=== PATIENT | male | born 1965 | race Caucasian/White ===

== ENCOUNTER 2019-06-17 18:46 | Emergency (ER) | payer BC, OTHER ==
[~2019-06-17] VITALS: Ht 170.2 cm; Wt 133.8 kg
[~2019-06-17 18:46] MED LIST: COUMADIN5 MG PO; IRON18 MG PO
--- OUTSIDE RECORDS SUMMARY | 2019-06-17 18:49 | XMS REPORT | Encounter Summary ---
Author Organization Unknown Address [address] [place] [address] Phone [phone] Care Team Providers Care Sales Support Coordinator Name Role Phone Dr. Felipe Lozano 3 [phone] Felipe Lozano MD 3 [phone] Carlos Lucas MD 82 [phone] Saul Blanchard MD 82 [phone] Ramos Santos MD 82 [phone] Ivanna Calzada MD 105 [phone] Berto Rivero 107 [phone] Ronaldo Corea MD 107 [phone] Devon Walker MD 130 [phone] D Ba Wasserman Jr, MD 201 [phone] Reason for Visit sinus symptoms; chronic conditions Instructions 1. Acute sinusitis Zithromax Z-Trip 250 mg tablet Bromfed DM 2 mg-30 mg-10 mg/5 mL oral syrup 2. Prediabetes 3. Dyslipidemia atorvastatin 20 mg tablet 4. Deep venous thrombosis of lower extremity 5. Body mass index 40+ - severely obese Discussion Note: None recorded. Patient educational handouts: No information available. Plan of Care Patient Instructions RTC 6 mo CPX Reminders Provider Appointments REGISTRY RN/EST CPX on or around 08/05/2019 Felipe Lozano MD Lab None recorded. Referral None recorded. Procedures None recorded. Surgeries None recorded. Imaging None recorded. Medications Name Start Date atorvastatin 20 mg tablet Take 1 tablet every day by oral route. Bromfed DM 2 mg-30 mg-10 mg/5 mL oral syrup Take 10 mL every 6 hours by oral route as needed. prn cough and congestion ferrous sulfate 325 mg (65 mg iron) tablet Jantoven 5 mg tablet 1 tablet daily and 1 1/2 alternate days. 02/03/2019 losartan 100 mg-hydrochlorothiazide 12.5 mg tablet Take 1 tablet every day by oral route for 30 days. metoprolol tartrate 25 mg tablet Take 1 tablet every day by oral route. pantoprazole 40 mg tablet,delayed release Take 1 tablet every day by oral route. Zithromax Z-Trip 250 mg tablet TAKE 2 TABLETS (500 MG) BY ORAL ROUTE ONCE DAILY FOR 1 DAY THEN 1 TABLET (250 MG) BY ORAL ROUTE ONCE DAILY FOR 4 DAYS Medications Administered None recorded. Vitals Height Weight BMI Blood Pressure 5 ft 7 in 305.4 lbs 47.8 kg/m2 130/80 mm[Hg] Results Lab Results None recorded. Allergies Code Code System Name Reaction Severity Status Onset 572247 RxNorm Demerol Bradycardia Severe Active Penicillins Bradycardia Fatal Active Problems Name Status Onset Date Source Bilateral Hearing Loss Active 05/07/2017 Deep Venous Thrombosis of Lower Extremity Active 05/07/2017 Gastroesophageal Reflux Disease without Esophagitis Active 05/07/2017 Low Back Pain Active 05/07/2017 Palpitations Active 05/07/2017 Body Mass Index 40+ - Severely Obese Active 05/07/2017 Anemia Active 07/12/2017 Prediabetes Active 07/12/2017 Dyslipidemia Active 01/10/2018 Hypertensive Disorder Active 04/01/2018 Rosacea Active 04/25/2018 Procedures Date Name Performed by 01/01/2018 Hemorrhoidectomy Information not available 01/01/2018 Colonoscopy Information not available 04/19/2017 Gastrointestinal Surgery Information not available Other Information not available Ankle Arthroscopy/surgery Information not available Knee Surgery Information not available Elbow Arthroscopy/surgery Information not available Vaccine List Vaccine Type influenza, injectable, quadrivalent, preservative free 01/06/2018 01/25/2019 influenza, unspecified formulation 03/19/2017 Tdap 08/31/20170.5 mL Social History Tobacco Smoking Status Never Smoker Past Encounters 02/03/2019 Acute Sinusitis; Prediabetes; Dyslipidemia; Deep Venous Thrombosis of Lower Extremity; Body Mass Index 40+ - Severely Obese Felipe Lozano MD: [id number], [address] [address], Ph. 01/25/2019 Influenza Vaccination Given Felipe Lozano MD: [address], [facility] [address] [address], Ph. History of Present Illness Note:Sick: occ diarrhea, got flu shot recently.<div>Timin wks</div><div> Fever: y</div><div>Chills: n</div><div>Aches: n</div><div>Sore Throat: intermittent</div><div>Cough: y</div><div>Earache: n</div><div>Headache: y</div> <div>Sinus pressure: y</div><div>Runny stuffy nose: n</div><div>Itchy watery eyes: n</div><div>Sneezing: n</div><div>Drainage: y</div><div>Treatment: OTC meds not helping</div><div>
</div><div>low back pain - better</div><div> baclofen 20 mg tablet 1 tablet as needed in the evening</div><div>ibuprofen 800 mg tablet 1 tablet 3 times a day as needed
</div><div>
</div><div>deep venous thrombosis of lower extremity - stable
</div><div>Per Card
</div>< div>
</div><div>thrombocytosis - better</div><div>
</div>Your labs are normal except...
<div>1. Lipids are higher than I would like considering you are on Pravastatin. Take your meds. Consider changing it in the future. I recommend low fat diet and walking. I will monitor.
</div><div>2. You are borderline diabetic. I recommend low carb / sugar diet and walking. I will monitor.
</div><div>3. You are a little anemic. I will monitor.
</div><div >
</div> Review of Systems:ROS as noted in the HPI Review of Systems Comprehensive General Adult ROS Reported By: Patient Constitutional: Constitutional: no fever Eyes: Eyes: no vision change, no irritation ENMT: Ears: no difficulty hearing, no ear pain. Nose: no nose problems, no sinus problems. Mouth/Throat: no sore throat, no oral abnormalities Cardiovascular: Cardiovascular: no chest pain, no palpitations Respiratory: Respiratory: no cough, no wheezing, no shortness of breath Gastrointestinal: Gastrointestinal: no abdominal pain, no nausea, no vomiting, no constipation, normal appetite, no diarrhea, no GERD Genitourinary: Genitourinary: no difficulty urinating, no hematuria, no increased frequency Musculoskeletal: Musculoskeletal: no muscle aches Integumentary: Skin: no rashes Neurologic: Neurologic: no headaches Endocrine: Endocrine: no fatigue Hematologic/Lymphatic: Hematologic/Lymphatic no swollen glands Allergic/Immunologic: Allergy/Immunologic: no runny nose, no sinus pressure, no itching, no frequent sneezing Physical Exam General Adult Exam (male) Reported By: Patient Constitutional: General Appearance: healthy-appearing, well-nourished, well-developed. Level of Distress: NAD. Ambulation: ambulating normally Psychiatric: Insight: good judgement. Mental Status: normal mood, normal affect Head: Head: normocephalic, atraumatic Eyes: Lids and Conjunctivae: non-injected, no discharge, no pallor. Pupils: PERRLA. EOM: EOMI ENMT: Ears: no lesions on external ear, EACs clear, TMs clear. Hearing: no hearing loss. Nose: no lesions on external nose, nares patent, nasal passages clear, no sinus tenderness, no nasal discharge. Oropharynx: moist mucous membranes, no erythema, no exudates, tonsils not enlarged Neck: Neck: supple, trachea midline, no masses, FROM. Lymph Nodes: no cervical LAD, no supraclavicular LAD Lungs: Respiratory effort: no dyspnea. Auscultation: breath sounds normal, good air movement, CTA except as noted, no wheezing, no rales/crackles, no rhonchi Cardiovascular: Heart Auscultation: RRR, normal S1, normal S2, no murmurs, no rubs, no gallops Neurologic: Gait and Station: normal gait, normal station
--- OUTSIDE RECORDS SUMMARY | 2019-06-17 18:49 | XMS REPORT ---
Author Author [facility] Address Unknown Phone Unavailable Care Team Providers Care Big Data Platform Architect Name Role Phone Unavailable Unavailable Problems This patient has no known problems. Allergies, Adverse Reactions, Alerts This patient has no known allergies or adverse reactions. Medications This patient has no known medications.
--- OUTSIDE RECORDS SUMMARY | 2019-06-17 18:49 | XMS REPORT | Encounter Summary ---
Author Organization Unknown Address [address] [place] [address] Phone [phone] Care Team Providers Care Materials Handling Coordinator Name Role Phone Dr. Felipe Lozano 3 [phone] Felipe Lozano MD 3 [phone] Carlos Lucas MD 82 [phone] Saul Blanchard MD 82 [phone] Ramos Santos MD 82 [phone] Ivanna Calzada MD 105 [phone] Berto Rivero 107 [phone] Ronaldo Corea MD 107 [phone] Devon Walker MD 130 [phone] D Ba Wasserman Jr, MD 201 [phone] Reason for Visit flu vaccine Instructions 1. Influenza vaccination given Fluzone Quad [id number] (PF) 60 mcg (15 mcg x 4)/0.5 mL IM syringe Discussion Note: None recorded. Patient educational handouts: No information available. Plan of Care Reminders Provider Appointments INSTRUCTOR ROBOTICS/EST CPX on or around 08/05/2019 Felipe Lozano MD Lab None recorded. Referral None recorded. Procedures None recorded. Surgeries None recorded. Imaging None recorded. Medications Name Start Date baclofen 20 mg tablet Take 1 tablet as needed by oral route in the evening. prn spasm ferrous sulfate 325 mg (65 mg iron) tablet ibuprofen 800 mg tablet Take 1 tablet 3 times a day by oral route as needed. prn moderate pain Jantoven 5 mg tablet alternate 1 tab every other day and 1/2 tab every other day. losartan 100 mg-hydrochlorothiazide 12.5 mg tablet Take 1 tablet every day by oral route for 30 days. metoprolol tartrate 25 mg tablet Take 1 tablet every day by oral route. pantoprazole 40 mg tablet,delayed release Take 1 tablet every day by oral route. pravastatin 40 mg tablet 1 tablet everyday tramadol 50 mg tablet 1 tablet everyday Medications Administered None recorded. Vitals None recorded. Results Lab Results None recorded. Allergies Code Code System Name Reaction Severity Status Onset 086682 RxNorm Demerol Bradycardia Severe Active Penicillins Bradycardia [...] Type influenza, injectable, quadrivalent, preservative free 01/06/2018 influenza, unspecified formulation 03/19/2017 Tdap 08/31/20170.5 mL Social History Tobacco Smoking Status Never Smoker Past Encounters 01/25/2019 Influenza Vaccination Given Felipe Lozano MD: [address], [address], [place] [address], Ph. History of Present Illness None recorded. Review of Systems None recorded. Physical Exam None recorded.
--- OUTSIDE RECORDS SUMMARY | 2019-06-17 18:49 | XMS REPORT | Encounter Summary ---
Author Organization Unknown Address [address] [place] [address] Phone [phone] Care Team Providers Care Barrel Raiser Name Role Phone Dr. Felipe Lozano 3 [phone] Felipe Lozano MD 3 [phone] Carlos Lucas MD 82 [phone] Saul Blanchard MD 82 [phone] Ramos Santos MD 82 [phone] Ivanna Calzada MD 105 [phone] Berto Rivero 107 [phone] Ronaldo Corea MD 107 [phone] Devon Walker MD 130 [phone] D Ba Wasserman MD 201 [phone] Reason for Visit Annual physical - male with PSA Instructions 1. Adult health examination CBC w/ auto diff CMP, serum or plasma TSH, serum or plasma lipid panel, serum HbA1c (hemoglobin A1c), blood PSA, serum or plasma 2. Low back pain baclofen 20 mg tablet ibuprofen 800 mg tablet 3. Deep venous thrombosis of lower extremity 4. Thrombocytosis 5. Body mass index 40+ - severely obese body mass index: care instructions learning about healthy weight Discussion Note: None recorded. Plan of Care Patient Instructions RTC prn I can manage BP / Lipid meds but Pt should havbe only 1 doc manage at a time. Reminders Provider Appointments CATH LAB/EST CPX on or around 08/05/2019 Felipe Lozano MD Lab CBC W/ Auto Diff 08/04/2018 [facility] CMP, Serum or Plasma 08/04/2018 [facility] TSH, Serum or Plasma 08/04/2018 [facility] Lipid Panel, Serum 08/04/2018 [facility] HbA1C (Hemoglobin a1C), Blood 08/04/2018 [facility] PSA, Serum or Plasma 08/04/2018 [facility] Referral None recorded. Procedures None recorded. Surgeries [...] tablet everyday Medications Administered None recorded. Vitals Height Weight BMI Blood Pressure 5 ft 7 in 305 lbs 47.8 kg/m2 124/82 mm[Hg] Lab Results None recorded. Allergies Code Code System Name Reaction Severity Status Onset 039389 RxNorm Demerol Bradycardia Severe Active Penicillins Bradycardia [...] formulation 03/19/2017 Tdap 08/31/20170.5 mL Social History Smoking Status Never Smoker Past Encounters 08/04/2018 Adult Health Examination; Low Back Pain; Deep Venous Thrombosis of Lower Extremity; Thrombocytosis; Body Mass Index 40+ - Severely Obese Felipe Lozano MD: [address], [facility] [address], [place] [address], Ph. History of Present Illness Note:[place] desired.<div>
</div><div>hypertensive disorder - Stable. Taking meds. No problems with side effects or cost.
<div>losartan 100 mg- hydrochlorothiazide 25 mg tablet</div><div>CArd has been managing but Pt may want me to do it.</div><div>
</div><div>Back Pain - Lt CVA pain. Some trouble lifting Lt leg s/ pain. [place] something in back pop.</div><div>No fall / trauma. Pt had a bad dream and jumped out of bed.</div><div>x 1wk</div><div>No Tx.</div><div>
</div><div>DVT - on blood thinners</div></div> Review of Systems:ROS as noted in the HPI Review of Systems Comprehensive General Adult ROS Reported By: Patient Constitutional: Constitutional: no fever, no night sweats, no significant weight gain, no significant weight loss, no exercise intolerance Eyes: Eyes: no dry eyes, no vision change, no irritation ENMT: Ears: no difficulty hearing, no ear pain. Nose: no frequent nosebleeds, no nose problems, no sinus problems. Mouth/Throat: no sore throat, no bleeding gums, no snoring, no dry mouth, no mouth ulcers, no oral abnormalities, no teeth problems Cardiovascular: Cardiovascular: no chest pain, no arm pain on exertion, no shortness of breath when walking, no shortness of breath when lying down, no palpitations, no known heart murmur, no lightheadedness Respiratory: Respiratory: no cough, no wheezing, no shortness of breath, no coughing up blood, no sleep apnea Gastrointestinal: Gastrointestinal: no abdominal pain, no nausea, no vomiting, no constipation, normal appetite, no diarrhea, not vomiting blood, no dyspepsia, no GERD Genitourinary: Genitourinary: no incontinence, no difficulty urinating, no hematuria, no increased frequency Musculoskeletal: Musculoskeletal: no muscle aches, no muscle weakness, no arthralgias/joint pain, no back pain, no swelling in the extremities Integumentary: Skin: no abnormal mole, no jaundice, no rashes, no laceration Neurologic: Neurologic: no loss of consciousness, no weakness, no numbness, no seizures, no dizziness, no migraines, no headaches, no tremor Psychiatric: Psych: no depression, no sleep disturbances, feeling safe in a relationship, no alcohol abuse, no anxiety, no hallucinations, no suicidal thoughts Endocrine: Endocrine: no fatigue Hematologic/Lymphatic: Hematologic/Lymphatic no swollen glands, no bruising, no excessive bleeding Allergic/Immunologic: Allergy/Immunologic: no runny nose, no sinus pressure, no itching, no hives, no frequent sneezing Physical Exam General Adult Exam (male) Reported By: Patient Constitutional: General Appearance: healthy-appearing, well-nourished, well-developed. Level of Distress: NAD. Ambulation: ambulating normally Psychiatric: Insight: good judgement. Mental Status: active and alert, normal mood, normal affect. Orientation: to time, to place, to person. Memory: recent memory normal, remote memory normal Head: Head: normocephalic, atraumatic Eyes: Lids and Conjunctivae: non-injected, no discharge, no pallor. Pupils: PERRLA. EOM: EOMI. Lens: clear. Sclerae: non-icteric. Vision: peripheral vision grossly intact, acuity grossly intact ENMT: Ears: no lesions on external ear, EACs clear, TMs clear, TM mobility normal. Hearing: no hearing loss; hearing aids. Nose: no lesions on external nose, nares patent, no septal deviation, nasal passages clear, no sinus tenderness, no nasal discharge. Lips, Teeth, and Gums: no mouth or lip ulcers, no bleeding gums, normal dentition. Oropharynx: moist mucous membranes, no erythema, no exudates, tonsils not enlarged Neck: Neck: supple, trachea midline, no masses, FROM. Lymph Nodes: no cervical LAD, no supraclavicular LAD, no axillary LAD, no inguinal LAD. Thyroid: no enlargement, non-tender, no nodules Lungs: Respiratory effort: no dyspnea. Auscultation: breath sounds normal, good air movement, CTA except as noted, no wheezing, no rales/crackles, no rhonchi Cardiovascular: Heart Auscultation: RRR, normal S1, normal S2, no murmurs, no rubs, no gallops. Neck vessels: no carotid bruits. Pulses including femoral / pedal: normal throughout Abdomen: Bowel Sounds: normal. Inspection and Palpation: soft, non-distended, no tenderness, no guarding, no rebound tenderness, no masses, no CVA tenderness. Liver: non-tender, no hepatomegaly. Spleen: non-tender, no splenomegaly Male : Male Exam: patient deferred exam Rectal: Rectal Exam: patient deferred exam Musculoskeletal:: Motor Strength and Tone: normal, normal tone. Joints, Bones, and Muscles: normal movement of all extremities, no contractures, no bony abnormalities, no malalignment, no tenderness. Extremities: no cyanosis, no edema, no varicosities Neurologic: Gait and Station: normal gait, normal station. Cranial Nerves: grossly intact. Sensation: grossly intact. Reflexes: DTRs 2+ bilaterally throughout. Coordination and Cerebellum: no tremor Skin: Inspection and palpation: no lesions, no jaundice Back: Thoracolumbar Appearance: normal curvature; below Notes: No LBP with sit / lie.<div>Lt lumbar spinal TTP.</div><div>Defer / Rectal since had colonoscopy recently</div>
--- OUTSIDE RECORDS SUMMARY | 2019-06-17 18:49 | XMS REPORT | Encounter Summary ---
Author Organization Unknown Address [address] [place] [address] Phone [phone] Care Team Providers Care Wedding Consultant Name Role Phone Dr. Felipe Lozano 3 [phone] Felipe Lozano MD 3 [phone] Carlos Lucas MD 82 [phone] Saul Blanchard MD 82 [phone] Ramos Santos MD 82 [phone] Ivanna Calzada MD 105 [phone] Berto Rivero 107 [phone] Ronaldo Corea MD 107 [phone] Devon Walker MD 130 [phone] D Ba Wasserman Jr, MD 201 [phone] Reason for Visit sore throat; cough / congestion Instructions 1. Upper respiratory infection fluticasone propionate 50 mcg/actuation nasal spray,suspension 2. Sore throat symptom rapid strep group A, throat rapid flu (A+B) 3. Deep venous thrombosis of lower extremity 4. Morbid obesity learning about healthy weight Discussion Note: None recorded. Plan of Care Reminders Provider Appointments None recorded. Lab Rapid Strep Group a, Throat 04/30/2019 [facility] ([facility]) Rapid Flu (A+B) 04/30/2019 [facility] ([facility]) Referral None recorded. Procedures None recorded. Surgeries None recorded. Imaging None recorded. Medications Name Start Date atorvastatin 20 mg tablet Take 1 tablet every day by oral route. ferrous sulfate 325 mg (65 mg iron) tablet fluticasone propionate 50 mcg/actuation nasal spray,suspension [place] 1 spray twice a day by intranasal route. Jantoven 5 mg tablet 1 tablet daily and 1 1/2 alternate days. 02/03/2019 losartan 100 mg-hydrochlorothiazide 12.5 mg tablet Take 1 tablet every day by oral route for 30 days. metoprolol tartrate 25 mg tablet Take 1 tablet every day by oral route. pantoprazole 40 mg tablet,delayed release Take 1 tablet every day by oral route. Medications Administered None recorded. Vitals Height Weight BMI Blood Pressure 5 ft 7 in 293 lbs 45.9 kg/m2 126/82 mm[Hg] Results Lab Results Date Name Specimen Result Interpretation Description Value Range Status Address 04/30/2019 Rapid Flu (A+B) Type Flu a negative [facility] ([facility]): [address] [address], [place] Type Flu B negative [facility] ([facility]): [address] Rapid Strep Group a, Throat Strep negative [facility] ([facility]): [address] Allergies Code Code System Name Reaction Severity Status Onset 303815 RxNorm Demerol Bradycardia Severe Active Penicillins Bradycardia [...] Tobacco Smoking Status Never Smoker Past Encounters 04/30/2019 Upper Respiratory Infection; Sore Throat Symptom; Deep Venous Thrombosis of Lower Extremity; Morbid Obesity Wilberto Bowman [facility]: [address] [address], [place] [address], Ph. History of Present Illness Note:<div>53 yo male c/o sore throat.</div><div>
</div><div>Sick:
</div>< div>Timing: x 1 day
</div><div>Fever: n
</div><div>Chills: y
</div>< div>Aches: n
</div><div>Sore Throat: y
</div><div>Cough: mild
</div>< div>Earache: n
</div><div>Headache: n
</div><div>Sinus pressure: n
< /div><div>Runny stuffy nose: y
</div><div>Itchy watery eyes: n
</div><div> Sneezing: n
</div><div>Drainage: n
</div><div>Treatment: OTC meds not helping</div><div>Ill contacts: y</div><div>Flu vaccine UTD: y</div> Review of Systems Notes: No CP, SOB, no NVD , no urinary sx of dysuria, frequency Physical Exam Upper Respiratory Infection Exam Comprehensive Reported By: Patient Constitutional: General Appearance in no acute distress Skin: Inspection and palpation: no rash, good turgor Head: Sinuses no tenderness Eyes: Pupils EOM intact, PERRLA Ears: Right External auditory canal normal appearance, no obstruction, no erythema, no discharge. Left External auditory canal normal appearance, no obstruction, no erythema, no discharge. Right Tympanic membrane pearly robin, landmarks clear. Left Tympanic membrane: pearly robin, landmarks clear Nose: Nasal Skin: no lesion, no lacerations. Nasal Mucosa normal, pink and moist Oral Cavity/Mouth: Lips, teeth, gums normal lips, normal gums. Oral Mucosa: normal, moist, no lesions. Palate: soft palate petechiae. Tongue: normal tongue, no lesion, no edema. Tonsils: normal tonsils, no lesions. Posterior pharynx: erythema Lymph Nodes: Cervical no palpable lymph node enlargement, no submandibular adenopathy, no posterior cervical adenopathy, no anterior cervical adenopathy, no supraclavicular adenopathy Neck: Neck symmetrical, trachea midline Lungs: Respiratory effort unlabored. Auscultation breath sounds normal, no wheezing, no rales / crackles, no rhonchi Cardiovascular System: Auscultation regular rate and rhythm, no murmur, no rubs, no gallops. Observation/Palpation of peripheral vascular system no edema
--- NOTE | 2019-06-17 19:51 | Diagnostic Imaging Report ---
Exam: Right knee 3 views History: Pain Comparison: None. Findings: No acute, displaced fracture or dislocation. Mild tricompartmental joint space narrowing and marginal osteophytosis. No definite joint effusion. Soft tissues are unremarkable. Impression: No acute osseous abnormalities. Mild tricompartmental degenerative arthrosis. Signed by: Dr. Ramos John M.D. on 06/17/2019 7:48 PM
--- NOTE | 2019-06-17 19:52 | Diagnostic Imaging Report ---
Exam: Left shoulder 2 views History: Shoulder pain Comparison: None. Findings: No acute, displaced fracture or dislocation. Humeral head projects appropriately adjacent to the glenoid area moderate acromioclavicular joint space narrowing and undersurface osteophytosis. Soft tissues unremarkable. Impression: No acute osseous abnormality. Moderate acromioclavicular degenerative arthrosis. Signed by: Dr. Ramos John M.D. on 06/17/2019 7:50 PM
[2019-06-17] MEDS ORDERED: ROBAXIN-750750 MG PO (19:54)
== END 2019-06-17 20:05 | disposition home or self-care (01) ==
LOC: FSED 18:46
DX: S80.01XA Contusion of right knee, initial encounter (principal); S16.1XXA Strain of muscle, fascia and tendon at neck level, initial encounter; S46.011A Strain of muscle(s) and tendon(s) of the rotator cuff of right shoulder, initial encounter; V43.52XA Car driver injured in collision with other type car in traffic accident, initial encounter; Y92.488 Other paved roadways as the place of occurrence of the external cause; Z86.718 Personal history of other venous thrombosis and embolism
CPT/HCPCS: 99283

== ENCOUNTER 2019-06-18 16:43 | Emergency (ER) | payer OTHER ==
[~2019-06-18] VITALS: Ht 170.2 cm; Wt 133.8 kg
[~2019-06-18 16:43] MED LIST changes: +ROBAXIN-750750 MG PO
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
== END 2019-06-18 18:01 | disposition home or self-care (01) ==
LOC: ER 16:43
DX: S23.3XXA Sprain of ligaments of thoracic spine, initial encounter (principal); S20.219A Contusion of unspecified front wall of thorax, initial encounter; M25.512 Pain in left shoulder; M25.561 Pain in right knee; V43.52XA Car driver injured in collision with other type car in traffic accident, initial encounter; Y92.488 Other paved roadways as the place of occurrence of the external cause; Z86.718 Personal history of other venous thrombosis and embolism
CPT/HCPCS: 71046; 93005; 99283

== ENCOUNTER → 2020-01-01 | Emergency (ER) | payer OTHER ==
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
== END | disposition left against medical advice (07) ==
LOC: FSED 19:39
DX: S69.92XA Unspecified injury of left wrist, hand and finger(s), initial encounter (principal)

== ENCOUNTER 2020-04-15 14:00 | Outpatient (RCR) | payer OTHER | END 2020-04-18 | LOC: OT 14:00 | PROVIDERS: ATTEND Specialist | DX: M75.52 Bursitis of left shoulder (principal) ==